=== PATIENT | female | born 2000 | race Caucasian/White ===

== ENCOUNTER 2019-04-19 19:11 | Emergency (ER) | payer SELFPAY ==
--- NOTE | 2019-04-19 19:51 | PDOC ---
Rapid Medical Evaluation Time Seen by Provider: 04/19/19 19:47 Medical Evaluation: Allergies Allergy/AdvReac Type Severity Reaction Status Date / Time No Known Allergies Allergy Verified 04/19/19 19:48 04/19/19 19:49 Pt c/o: enlarged tonsils x 3 months , now causing pain with swallowing and diff breathing Pt on brief exam: 3-4 + pitting tonsils, uvula midline, lcta, vss, no exudate or erythema Pt ordered for: none Pt to proceed to the ED Discharge Disposition - Diagnosis Enlarged tonsils - Referrals - Patient Instructions - Post Discharge Activity
[2019-04-19 19:52] VITALS: BP 144/76; PULSE 108; TEMP 98.2; BMI 28.9
[2019-04-19] MEDS ORDERED: predniSONE 20 MG TABLET (UD) PO ONE (20:43)
[2019-04-19] MEDS ORDERED: predniSONE 20 MG TABLET (UD) ONE (20:45)
--- NOTE | 2019-04-19 21:34 | PDOC ---
History of Present Illness - General Chief Complaint: Asthma Stated Complaint: DIFFICULTY SWALLOWING Time Seen by Provider: 04/19/19 19:47 History Source: Patient Exam Limitations: No Limitations Past History - Travel Traveled outside of the country in the last 30 days: No Close contact w/someone who was outside of country & ill: No - Past Medical History Allergies/Adverse Reactions: Allergies Allergy/AdvReac Type Severity Reaction Status Date / Time No Known Allergies Allergy Verified 04/19/19 19:48 Home Medications: Ambulatory Orders predniSONE [Deltasone -] 40 mg PO DAILY #8 tablet 04/19/19 Asthma: Yes COPD: No - Immunization History Immunization Up to Date: Yes - Psycho Social/Smoking Cessation Hx Smoking History: Never smoked Information on smoking cessation initiated: No Hx Alcohol Use: No Drug/Substance Use Hx: No Review of Systems - Review of Systems Able to Perform ROS?: Yes Comments:: 04/19/19 22:38 CONSTITUTIONAL: Absent: fever, chills, diaphoresis, generalized weakness, malaise, loss of appetite HEENT: Present: tonsil swelling Absent: rhinorrhea, nasal congestion, throat pain, throat swelling, difficulty swallowing, mouth swelling, ear pain, eye pain, visual Changes CARDIOVASCULAR: Absent: chest pain, loss of consciousness, palpitations, irregular heart rate, peripheral edema RESPIRATORY: Absent: cough, shortness of breath, dyspnea with exertion, orthopnea, wheezing, stridor, hemoptysis GASTROINTESTINAL: Absent: abdominal pain, abdominal distension, nausea, vomiting, diarrhea, constipation, melena, hematochezia GENITOURINARY: Absent: dysuria, frequency, urgency, hesitancy, hematuria, flank pain, genital pain MUSCULOSKELETAL: Absent: myalgia, arthralgia, joint swelling SKIN: Absent: rash, itching, pallor HEMATOLOGIC/IMMUNOLOGIC: Absent: easy bleeding, easy bruising, lymphadenopathy, frequent infections ENDOCRINE: Absent: unexplained weight gain, unexplained weight loss, heat intolerance, cold intolerance NEUROLOGIC: Absent: headache, focal weakness or paresthesias, dizziness, unsteady gait, seizure, mental status changes, bladder or bowel incontinence PSYCHIATRIC: Absent: anxiety, depression, suicidal or homicidal ideation, hallucinations. Is the patient limited Pashto proficient: No *Physical Exam - Vital Signs Last Vital Signs Temp Pulse Resp BP Pulse Ox 98.2 F 108 H 17 144/76 99 04/19/19 19:48 04/19/19:48 04/19/19 19:48 04/19/19 19:48 04/19/19 19:48 - Physical Exam Comments: 04/19/19 22:39 GENERAL: The patient is awake, alert, and fully oriented, in no acute distress. HEAD: Normal with no signs of trauma. EYES: Pupils equal, round and reactive to light, extraocular movements intact, sclera anicteric, conjunctiva clear. THROAT: Swelling noted to the tonsils b/l, 2+ edema. No erythema EXTREMITIES: Normal range of motion, no edema. NEUROLOGICAL: Normal speech, normal gait. PSYCH: Normal mood, normal affect. SKIN: Warm, Dry, normal turgor, no rashes or lesions noted. ED Treatment Course - Medications Given in the ED: ED Medications Discontinued Medications Generic Name Dose Route Start Last Admin Trade Name Freq PRN Reason Stop Dose Admin Prednisone 40 mg 04/19/19 20:43 04/19/19 20:47 Deltasone - PO 04/19/19 20:44 40 mg ONCE ONE Administration Medical Decision Making - Medical Decision Making 04/19/19 22:40 The patient is a 19-year-old femalewith no past medical history presents to the ER with difficulty swallowing. States that her tonsils feel swollen. This is been happening intermittently over the past 3 months with no diagnosis. She denies fever, sore throat, difficulty breathing, stridor and wheezing. A/P: Enlarged tonsils Exam 2+ tonsils noted however uvula is midline, no erythema or exudates. Lungs are clear to auscultation bilaterally with no wheezing rales or rhonchi. Rapid strep is negative. Consider mono however will refer patient to follow-up with ENT Discharge home I discussed the physical exam findings, ancillary test results and final diagnoses with the patient. I answered all of the patient's questions. The patient was satisfied with the care received and felt comfortable with the discharge plan and treatment plan. The Patient agrees to follow up with the primary care physician/specialist within 24-72 hours. Return precautions were given. Discharge - Discharge Information Problems reviewed: Yes Clinical Impression/Diagnosis: Enlarged tonsils Condition: Stable Disposition: HOME - Admission No - Additional Discharge Information Prescriptions: predniSONE [Deltasone -] 40 mg PO DAILY #8 tablet - Follow up/Referral Referrals: Jose Eduardo Nieves MD [Staff Physician] - - Patient Discharge Instructions Patient Printed Discharge Instructions: DI for Pharyngitis/Tonsillopharyngitis -- Adult Additional Instructions: Your evaluated for your enlarged tonsils today. Your strep test was negative. Please take the steroids as directed for the next 4 days. He may start taking them tomorrow night as the doctor first dose in the ER. Please follow-up with ears nose and throat. A referral has been provided for you. Please follow-up within the week. Return to the ER for difficulty swallowing, difficulty breathing, fever, or if you have any changes in your symptoms. - Post Discharge Activity Work/Back to School Note: Back to Work
== END 2019-04-19 21:47 | disposition home or self-care (01) ==
LOC: JERFT 19:11 → EDBD 19:11 → JERFT 21:47
DX: J35.1 Hypertrophy of tonsils (principal); J45.909 Unspecified asthma, uncomplicated
CPT/HCPCS: 87070; 87880; 99282-25